=== PATIENT | male | born 1990 | race Caucasian/White ===

== ENCOUNTER 2020-06-14 10:14 | Emergency (ER) | payer OTHER ==
[~2020-06-14] VITALS: Ht 180.3 cm; Wt 90.7 kg
[2020-06-14 10:28] VITALS: BP 143/98
[2020-06-14 10:33] VITALS: BP 145/98
[2020-06-14] MEDS ORDERED: DECADRON ONE (10:42)
[2020-06-14] MEDS ORDERED: BICILLIN L-A IM ONE (10:43)
[2020-06-14] MEDS ORDERED: DECADRON IM STA (10:45)
[2020-06-14] MEDS ORDERED: BICILLIN L-A IM STA (10:45)
--- NOTE | 2020-06-14 10:52 | ER.PDOC ---
General Chief Complaint: Sore Throat Stated Complaint: SORE THROAT Time seen by MD: 10:47 Source: patient Exam Limitations: no limitations History of Present Illness Initial Comments Sore throat since this morning. No fever or chills. No cough or congestion. No exposure to a person positive for COVID-19. Timing/Duration: gradual Associated Symptoms: mod sore throat Severity: moderate Allergies: Coded Allergies: No Known Allergies (Unverified , 06/14/20) Past Medical History Medical History: no pertinent history Surgical History: no surgical history Family History Significant Family History: no pertinent family hx Social History Smoking: non-smoker Alcohol Use: sober Drug Use: none Constitutional: no symptoms reported Throat: see HPI Respiratory: no symptoms reported Cardiovascular: no symptoms reported Gastrointestinal: no symptoms reported Musculoskeletal: no symptoms reported Skin: no symptoms reported All Other Systems: Reviewed and Negative Physical Exam General Appearance: alert, no distress Head/Neck: head nml inspection, neck nml inspection, trachea midline, thyroid nml, cervical lymphadenopathy Mouth: lips, gums nml, no drooling, no thrush, membranes nml Throat: pharyngeal erythema Respiratory: no resp. distress, lungs clear CVS: reg. rate & rhythm, heart sounds nml Abdomen: non-tender, no organomegaly Extremities: non-tender, ROM nml Skin Exam: Normal Color, Warm/Dry NEURO/PSYCH: oriented X3, mood/effect nml Results/Orders Results/Orders Orders - KLAUDIA WHYTE MD Dexamethasone Sodium Phosphate (Decadron (06/14/20 10:42) Penicillin G Benzathine (Bicillin L-A) (06/14/20 10:43) Vital Signs Date Time Temp Pulse Resp B/P (MAP) Pulse Ox O2 Delivery O2 Flow Rate FiO2 06/14/20 10:33 97.7 93 18 145/98 (114) 99 Room Air 06/14/20 10:28 97.7 93 18 06/14/20 10:28 97.7 101 18 99 Progress Progress Based on [facility] criteria, patient treated for strep pharyngitis. He was given a shot of Bicillin in and Decadron. He will be discharged home on prednisone for 1 week for inflammation. ER DEPART Departure Time of Disposition: 10:51 Disposition: 01 HOME, SELF-CARE Impression: Primary Impression: Acute pharyngitis Qualified Codes: J02.9 - Acute pharyngitis, unspecified Condition: Stable Referrals: PCP,UNKNOWN (PCP) PRIMARY CARE PROVIDER Additional Instructions: Prednisone Salt with warm water gargles 3 times a day Chloraseptic spray [id number] as needed for throat pain Follow-up PCP 1 week Return to ED if worsening symptoms or concerns. Duration or Time Spent with Pa: 10 min KLAUDIA WHYTE MD Jun 14, 2020 10:52
[2020-06-14 11:00] VITALS: BP 138/90
== END 2020-06-14 11:04 | disposition home or self-care (01) ==
LOC: ER 10:14
DX: J02.9 Acute pharyngitis, unspecified (principal)
CPT/HCPCS: 96372; 99284; J0561; J1100